=== PATIENT | male | born 1990 | race Caucasian/White ===

== ENCOUNTER 2017-06-25 12:39 | Emergency (ER) | payer SELFPAY ==
[~2017-06-25] VITALS: Ht 180.3 cm; Wt 75.0 kg
[2017-06-25 13:03] VITALS: BP 109/70
== END 2017-06-25 18:00 | disposition left against medical advice (07) ==
LOC: ER 12:39
DX: N39.0 Urinary tract infection, site not specified (principal); Z53.21 Procedure and treatment not carried out due to patient leaving prior to being seen by health care provider

== ENCOUNTER 2018-03-08 18:49 | Emergency (ER) | payer MEDICAID, MEDICARE ==
[~2018-03-08] VITALS: Ht 180.3 cm; Wt 73.0 kg
[2018-03-08] MEDS ORDERED: LACO100T2 PO (19:00)
[2018-03-08 19:51] LABS: BASOPHILS % 0.4 % (0.0-2.0); EOSINOPHILS % 0.7 % (0.0-5.0); HEMATOCRIT. 42.4 % (42.0-52.0); HEMOGLOBIN. 14.6 g/dL (14.0-18.0); LYMPHOCYTES % 23.7 % (20.0-50.0); MEAN CORPUSCULAR HEMOGLOBIN 30.7 pg (28.0-32.0); MEAN CORPUSCULAR VOLUME 88.9 fL (80.0-94.0); MEAN PLATELET VOLUME 10.3 fl (7.4-10.4); MONOCYTES % 4.7 % (2.0-8.0); NEUTROPHILS % 70.5 % (40.0-76.0); PLATELET 191 x1000/uL (130-400); RED BLOOD CELL COUNT 4.77 mill/uL (4.7-6.1); RED CELL DISTRIBUTION WIDTH 13.2 % (11.6-14.6)
[2018-03-08 19:52] LABS: CHLORIDE 105 mEq/L (98-107)
[2018-03-08 19:54] LABS: INR 1.1; PARTIAL THROMBOPLASTIN TIME 23.2 sec (23.4-31.0); PROTHROMBIN TIME 11.1 sec (9.4-11.6)
[2018-03-08 20:02] LABS: CREATINE KINASE MB FRACTION < 0.5 ng/mL (0.5-3.6)
[2018-03-08] MEDS ORDERED: SODIUM CHLORIDE 0.9% 1,000 ML IV ONE (21:21)
[2018-03-08] MEDS ORDERED: ONDANSETRON HCL 4MG/2ML VIAL IV ONE (21:45)
[2018-03-08] MEDS ORDERED: LORAZEPAM 1MG TABLET PO ONE (21:45)
[2018-03-09] MEDS ORDERED: ACETAMINOPHEN 325MG TABLET PO ONE (00:15)
[2018-03-09 00:50] VITALS: BP 125/86
== END 2018-03-09 00:50 | disposition left against medical advice (07) ==
LOC: ER 19:13 → EDBEDREQ 22:43 → EDBEDREQTM 22:43 → ER 03-09 00:50 → CANBEDREQ 03-09 02:31
DX: S62.002A Unspecified fracture of navicular [scaphoid] bone of left wrist, initial encounter for closed fracture (principal); G40.802 Other epilepsy, not intractable, without status epilepticus; Z88.1 Allergy status to other antibiotic agents; W19.XXXA Unspecified fall, initial encounter; Y93.89 Activity, other specified; Y92.89 Other specified places as the place of occurrence of the external cause; Y99.8 Other external cause status
CPT/HCPCS: 36415; 70450; 71045; 73110; 80048; 82553; 83735; 83880; 84484; 85025; 85610; 85730; 93005; 96361; 96374; 99285; J2405; J7030; Z7610